=== PATIENT | male | born 2000 | race Caucasian/White ===

== ENCOUNTER 2021-03-18 18:43 | Emergency (ER) | payer OTHER ==
[~2021-03-18] VITALS: Ht 185.4 cm; Wt 70.4 kg
[2021-03-18 18:50] VITALS: BP 137/73
--- NOTE | 2021-03-18 18:56 | NUR ---
gisella notified:dutch [id number]
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
== END 2021-03-18 22:52 | disposition home or self-care (01) ==
LOC: ER 18:43 → EEVIPCON 18:43 → ER 22:52
DX: S06.0X0A Concussion without loss of consciousness, initial encounter (principal); R51.9 Headache, unspecified; H53.8 Other visual disturbances; Z72.89 Other problems related to lifestyle; Y08.89XA Assault by other specified means, initial encounter; Y93.89 Activity, other specified; Y92.89 Other specified places as the place of occurrence of the external cause; Y99.8 Other external cause status
CPT/HCPCS: 70450; 70486; 72125; 99285